=== PATIENT | male | born 1985 | race Caucasian/White ===

== ENCOUNTER → 2022-08-30 | Emergency (ER) | payer BC | END | disposition left against medical advice (07) | LOC: SED 17:56 | DX: Z53.21 Procedure and treatment not carried out due to patient leaving prior to being seen by health care provider (principal) ==

== ENCOUNTER 2022-12-23 12:41 | Emergency (ER) | payer BC ==
[~2022-12-23] VITALS: Ht 175.3 cm; Wt 101.6 kg
[2022-12-23 13:13] VITALS: BP_SYST 136
[2022-12-23 13:43] LABS: BASOPHILS # (AUTO) 0.1 K/uL (0.0-0.2); BASOPHILS % (AUTO) 0.7 % (0.0-2.0); EOSINOPHILS # (AUTO) 0.1 K/uL (0.0-0.4); HEMOGLOBIN 13.4 g/dL (14.0-18.0); LYMPHOCYTES # (AUTO) 2.3 K/uL (1.0-5.5); LYMPHOCYTES % (AUTO) 27.1 % (20.5-51.5); MEAN CORPUSCULAR HEMOGLOBIN 30 pg (27-31); MEAN CORPUSCULAR HGB CONC 35 % (32-36); MEAN CORPUSCULAR VOLUME 86 fL (79.0-98.0); MONOCYTES # (AUTO) 0.7 K/uL (0.0-1.0); MONOCYTES % (AUTO) 8.3 % (1.7-9.3); NEUTROPHILS # (AUTO) 5.4 K/uL (1.8-7.7); NEUTROPHILS % (AUTO) 62.9 % (40.0-70.0); PLATELET COUNT (AUTO) 226 K/uL (130-430); RED BLOOD CELL COUNT(AUTO) 4.42 MIL/uL (4.2-6.2); RED CELL DISTRIBUTION WIDTH 13.7 % (9.0-15.0); WHITE BLOOD COUNT (AUTO) 8.6 K/uL (4.8-10.8)
[2022-12-23 13:55] LABS: CALCIUM 8.9 mg/dL (8.4-11.0); CREATININE 0.82 mg/dL (0.55-1.30)
[2022-12-23 13:59] LABS: ALBUMIN 4.2 g/dL (3.4-4.8); TOTAL BILIRUBIN 0.3 mg/dL (0.0-1.0)
[2022-12-23] MEDS ORDERED: NS 500 ML IV ONE (14:45)
[2022-12-23] MEDS ORDERED: ONDANSETRON HCL 4 MG/2 ML VIAL IVP ONE ×2 (15:00→18:00)
[2022-12-23] MEDS ORDERED: MORPHINE 4 MG INJ. 4 MG/ML VIAL IVP ONE ×2 (15:00→18:00)
[2022-12-23 15:13] LABS: INR 3.4 (0.80-1.20)
[2022-12-23 15:38] LABS: PROTHROMBIN TIME 33.5 SECS (9.5-12.5)
[2022-12-23] MEDS ORDERED: iohexoL 350 mgI/mL, 100 ML INFUS..BTL IV ONE (15:57)
[2022-12-23] MEDS ORDERED: ONDANSETRON HCL 4 MG/2 ML VIAL ONE (16:13)
[2022-12-23 20:41] VITALS: BP_SYST 136
== END 2022-12-23 17:00 | disposition home or self-care (01) ==
LOC: SED 12:41
DX: I82.402 Acute embolism and thrombosis of unspecified deep veins of left lower extremity (principal); F41.9 Anxiety disorder, unspecified; E78.5 Hyperlipidemia, unspecified; I10 Essential (primary) hypertension; Z79.01 Long term (current) use of anticoagulants; Z79.899 Other long term (current) drug therapy
CPT/HCPCS: 99285; 96374; 71275; 93971; 71045; 96361; 96375; 80053; 83880; 85025; 85610; 85730; 84484; 36415; 93005; 76376; Q9967; J2405; J2270; J7030